=== PATIENT | male | born 2005 | race Caucasian/White ===

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

== ENCOUNTER 2024-01-09 15:51 | Emergency (ER) | payer BC ==
[2024-01-09] MEDS ORDERED: Ondansetron PF 4 MG/2 ML Vial ONE (16:41)
[2024-01-09 17:02] LABS: #Basophils 0.07 10x3/uL (0.0-0.2); #Eosinphils 0.08 10x3/uL (0.0-0.5); #Neutrophils 8.05 10x3/uL (1.5-8.4); %Basophils 0.6 % (0.0-2.0); %Eosinophils 0.7 % (0.0-6.0); %Lymphocytes 22.9 % (18.0-47.0); %Neutrophils 69.1 % (40.0-75.0); Hematocrit 43.5 % (38.8-50.0); Hemoglobin 15.2 g/dL (13.5-17.5); Mean Corpuscular HGB CONC 34.9 g/dL (32.0-36.0); Mean Corpuscular Hemoglobin 28.8 pg (27.0-33.0); Mean Corpuscular Volume 82.4 fL (81.2-95.1); Mean Platelet Volume 9.8 fL (7.4-10.4); Platelet Count 456 10x3/uL (150-450); RBC Distribution Width 12.1 % (11.5-14.5); Red Blood Cell (RBC) Count 5.28 10x6/uL (4.32-5.72); White Blood Cell (WBC) Count 11.7 10x3/uL (3.5-10.5)
[2024-01-09 17:12] LABS: ALT (SGPT) 21 U/L (8-55); AST (SGOT) 21 U/L (5-34); Albumin 4.1 g/dL (3.5-5.0); Alkaline Phosphatase 57 U/L (50-130); Anion Gap 11 mmol/L (10-20); BUN (Urea Nitrogen) 10 mg/dL (8.9-20.6); Bilirubin, Total 0.5 mg/dL (0.2-1.2); Calc. Creatinine Clearance 0 mL/min (70-130); Calcium 11.1 mg/dL (7.8-10.44); Carbon Dioxide 31 mmol/L (22-29); Chloride 101 mmol/L (98-107); Estimated GFR 119; Globulin 3.7 g/dL (2.4-3.5); Glucose 107 mg/dL (70-105); Potassium 3.9 mmol/L (3.5-5.1); Protein, Total 7.8 g/dL (6.0-8.3); Sodium 139 mmol/L (136-145)
== END 2024-01-09 18:35 | disposition home or self-care (01) ==
LOC: CSHERS 15:51
DX: R11.2 Nausea with vomiting, unspecified (principal); R19.7 Diarrhea, unspecified; F17.290 Nicotine dependence, other tobacco product, uncomplicated
CPT/HCPCS: 80053; 85025; 96361; 96374; J2405

== ENCOUNTER 2024-06-25 10:49 | Emergency (ER) | payer BC ==
[2024-06-25] MEDS ORDERED: Ondansetron ODT 4 MG TAB ONE (11:03)
== END 2024-06-25 11:09 | disposition home or self-care (01) ==
LOC: CSHERS 10:49
DX: R11.2 Nausea with vomiting, unspecified (principal); R19.7 Diarrhea, unspecified; F17.290 Nicotine dependence, other tobacco product, uncomplicated
CPT/HCPCS: 99283; Q0162

== ENCOUNTER 2024-07-02 10:13 | Emergency (ER) | payer BC ==
[2024-07-02] MEDS ORDERED: Cyclobenzaprine 10 MG TAB ONE (10:41)
[2024-07-02] MEDS ORDERED: Ibuprofen 200 MG TAB ONE (10:41)
== END 2024-07-02 11:20 | disposition home or self-care (01) ==
LOC: CSHERS 10:13
DX: S39.012A Strain of muscle, fascia and tendon of lower back, initial encounter (principal); F17.290 Nicotine dependence, other tobacco product, uncomplicated; W00.0XXA Fall on same level due to ice and snow, initial encounter; W22.8XXA Striking against or struck by other objects, initial encounter; Y93.89 Activity, other specified; Y92.69 Other specified industrial and construction area as the place of occurrence of the external cause; Y99.0 Civilian activity done for income or pay
CPT/HCPCS: 72100; 99284

== ENCOUNTER 2024-07-06 12:16 | Emergency (ER) | payer BC | END 2024-07-06 14:36 | disposition home or self-care (01) | LOC: CSHERS 12:16 | DX: M54.50 Low back pain, unspecified (principal); F17.290 Nicotine dependence, other tobacco product, uncomplicated; W01.198A Fall on same level from slipping, tripping and stumbling with subsequent striking against other object, initial encounter | CPT/HCPCS: 99283 ==

== ENCOUNTER 2025-04-24 08:54 | Emergency (ER) | payer BC | END 2025-04-24 10:17 | disposition home or self-care (01) | LOC: CSHERS 08:54 | DX: B34.9 Viral infection, unspecified (principal); F17.290 Nicotine dependence, other tobacco product, uncomplicated | CPT/HCPCS: 87428; 99283 ==

== ENCOUNTER 2025-05-01 12:15 | Emergency (ER) | payer BC ==
[2025-05-01] MEDS ORDERED: Ketorolac Tromethamine 30 MG (1 mL) VIAL ONE (12:56)
[2025-05-01 13:19] LABS: MONO NEGATIVE CONTROL ZONE White (Negative) (White); MONO POSITIVE CONTROL Pink Line (Positive) (PINK/RED); Mononucleosis NEGATIVE (NEGATIVE)
[2025-05-01] MEDS ORDERED: Amoxicillin/Potassium Clav 875 MG TAB ONE (13:52)
== END 2025-05-01 13:52 | disposition home or self-care (01) ==
LOC: CSHERS 12:15
DX: J02.8 Acute pharyngitis due to other specified organisms (principal); R59.0 Localized enlarged lymph nodes; B96.89 Other specified bacterial agents as the cause of diseases classified elsewhere; F17.290 Nicotine dependence, other tobacco product, uncomplicated
CPT/HCPCS: 86308; 87081; 87428; 87430; 96374; 96375; J1885; J2919